=== PATIENT | female | born 1945 | race African-American/Black ===

== ENCOUNTER 2018-07-14 09:26 | Inpatient (IN) ==
[2018-07-14] MEDS ORDERED: Acetaminophen 325 MG Tablet PO PRN (11:36)
[2018-07-14] MEDS ORDERED: Sod Chloride 0.9% Inj 1,000 ML IV.CONT SCH (11:45)
[2018-07-14] MEDS ORDERED: MethylPREDNISolone Sod Succinate Inj 40 MG/ML Vial IV.PUSH ONE (13:27)
[2018-07-14 13:58] LABS: ABG Base Excess 5.1 mmol/L (-2-2); ABG PCO2 71 mmHg (38-42); ABG PO2 74 mmHg (61-120)
[2018-07-14] MEDS: Levofloxacin 500 mg Premix Inj 500 MG/100 ML PIGGYBACK IV.SIG SCH (14:03)
[2018-07-14] MEDS ORDERED: Dextrose 50% in Water 50 ML Vial IV.PUSH PRN (16:22)
--- NOTE | 2018-07-14 16:24 | P.HPIM ---
History of Present Illness Primary Care Physician: UNKNOWN Chief Complaint: Respiratory Distress History of Present Illness: Mrs. Hernandez is a 72-year-old female. She is a former smoker but official diagnoses of CHF or COPD are not present. She does have diabetes at baseline. She does take inhalers either for asthma or COPD. Today she came in complaining of acute shortness of breath. Hypoxia is present. New-onset seizure was also present which triggered her to come in. Acute kidney injury is present. Upon arrival she was on a nonrebreather which was upgraded to BiPAP based on ABG which showed respiratory acidosis. She is more comfortable on a nonrebreather. History is limited by nonrebreather use. She denies any chest pain. Inpatient Certification Inpatient Certification: I certify that the inpatient services were ordered in accordance with Medicare regulations governing the order. This includes certification that hospital inpatient services are reasonable and necessary and in the case of services not specified as inpatient-only under 42 CFR 419.22(n), that they are appropriately provided as inpatient services in accordance to with the 2-midnight benchmark under 43 CFR 412.3(e) Estimated Total Length of Stay (Days): 3 Plans for Post Hospital Care: Not yet determined Review of Systems Constitutional: No fevers, no chills no night sweats, no fatigue, no weakness Eyes: No eye pain, no blurry vision, no loss of vision ENT: No sore throat, no ear pain, no rhinorrhea Cardiovascular: No chest pain, no tachycardia, no palpitations, no syncope Respiratory: No wheezing, no cough, shortness of breath Gastrointestinal: No abdominal pain, no black tarry stools, no bright red blood per rectum, no vomiting, no diarrhea Musculoskeletal: No joint pain, no muscle cramps, no stiffness Integumentary: No rash, no ulcers, no drainage Neurologic: No sensory loss, no loss of motor function, no dizziness, seizure Psychiatric: No behavioral changes, no hallucinations, no suicidal ideations PMFSH Family History Family History Other Osteoarthritis Social History Social History Substance History: No History of Abuse Second Hand Smoke Exposure: No Smoking Status: Former smoker Tobacco Type: Cigarettes How Often Do You Have a Drink Containing Alcohol: Never Immunization History Hx Influenza Vaccine This Season: Yes Medications and Allergies Allergies Allergy/AdvReac Type Severity Reaction Status Date / Time No Known Allergies Allergy Verified 07/14/18 09:29 Home Medications Medication Instructions Recorded Confirmed Type Inhaler 2 puff INHALATION BID 07/14/18 History Nebulizer 1 amp INHALATION Q4HR NEB 07/14/18 History cholecalciferol (vitamin D3) 5,000 mg PO DAILY 07/14/18 07/14/18 History [Vitamin D3] furosemide [Lasix] BID 07/14/18 History glimepiride 07/14/18 07/14/18 History lisinopril mg PO DAILY 07/14/18 History Active Medications: Active Medications Acetaminophen (Tylenol) 650 mg PO Q4H PRN PRN Reason: Temp > 100.4 Al Hydroxide/Mg Hydroxide (Milk Of Randall Liq) 30 ml PO Q12H PRN PRN Reason: Mild Constipation Albuterol (Albuterol Neb (Prn)) 2.5 mg NEB Q4HR NEB PRN PRN Reason: Dyspnea or Wheeze Albuterol (Duoneb Neb (Dave)) 1 ampul NEB Q6HR WHILE AWAKE NEB ADVE Last Admin: 07/14/18 14:19 Dose: 1 ampul Levetiracetam 500 mg/ Sodium (Chloride) 105 mls @ 400 mls/hr IV.SIG Q12H DAVE Last Infusion: 07/14/18 14:19 Dose: Infused Levofloxacin/Dextrose (Levaquin 500 Mg Premix Inj) 500 mg in 100 mls @ 100 mls/ hr IV.SIG Q24H DAVE Last Infusion: 07/14/18 15:18 Dose: Infused Methylprednisolone Sodium Succinate (Solumedrol Inj) 40 mg IV.PUSH Q8HR DAVE Ondansetron HCl (Zofran Inj) 4 mg IV.PUSH Q6H PRN PRN Reason: NAUSEA OR VOMITING Sodium Chloride (Ns Flush) 2 ml IV.FLUSH BID DAVE Sodium Chloride (Ns Flush) 2 ml IV.FLUSH PRN PRN PRN Reason: FLUSH AFTER USING IV ACCESS Physical Exam Vital signs: Vital Signs 07/14/18 13:39 07/14/18 13:56 07/14/18 14:00 Temperature 97.5 F L Pulse Rate 72 76 Respiratory Rate 32 H 32 H Blood Pressure 159/75 H Pulse Oximetry 97 93 L 07/14/18 14:28 07/14/18 15:01 Temperature Pulse Rate 70 Respiratory Rate 25 H Blood Pressure 155/74 H Pulse Oximetry 95 92 L Intake & Output 07/13/18 07/14/18 07/14/18 18:59 06:59 18:59 Intake Total Balance Weight 122.4 kg Intake: IV Levaquin 500 mg Premix Inj 500 100 / 100 mg In 100 ml @ 100 mls/hr IV. SIG Q24H DAVE Rx#:[id number] Keppra Inj 500 MG In NS Inj 100 105 / 105 ML @ 400 mls/hr IV.SIG Q12H DAVE Rx#:[id number] Other: Weight On Admission 122.4 kg Narrative: GENERAL: NAD, A&Ox3, acute respiratory distress HEAD: Normocephalic. NECK: Supple, trachea midline. No lymphadenopathy. EYES: No scleral icterus. No injection or drainage. CARDIOVASCULAR: Regular rate and rhythm without murmurs, gallops, or rubs. RESPIRATORY: Breath sounds equal bilaterally. Increased work of breathing with accessory muscle use. Crackles at bases bilaterally. GASTROINTESTINAL: Abdomen soft, non-tender, nondistended. MUSCULOSKELETAL: No cyanosis, or edema. SKIN: Warm and dry. NEURO: No focal neurological deficits. Caprini VTE Risk Assessment Caprini VTE Risk Assessment: Moderate/High Risk (score >= 2) Caprini Risk Assessment Model: Point Value = 1 Point Value = 2 Point Value = 3 Point Value = 5 Age 41-60 Minor surgery BMI > 25 kg/m2 Swollen legs Varicose veins or History of unexplained or recurrent spontaneous Oral contraceptives or hormone replacement Sepsis (< 1 month) Serious lung disease, including pneumonia (< 1 month) Abnormal pulmonary function Acute myocardial infarction Congestive heart failure (< 1 month) History of inflammatory bowel disease Medical patient at bed rest Age 61-74 Arthroscopic surgery Major open surgery (> 45 min) Laparoscopic surgery (> 45 min) Malignancy Confined to bed (> 72 hours) Immobilizing plaster cast Central venous access Age >= 75 History of VTE Family history of VTE Factor V Leiden Prothrombin [id number] Lupus anticoagulant Anticardiolipin antibodies Elevated serum homocysteine Heparin-induced thrombocytopenia Other congenital or acquired thrombophilia Stroke (< 1 month) Elective arthroplasty Hip, pelvis, or leg fracture Acute spinal cord injury (< 1 month) Prophylaxis Regimen: Total Risk Factor Score Risk Level Prophylaxis Regimen 0-1 Low Early ambulation 2 Moderate Order ONE of the following: *Sequential Compression Device (SCD) *Heparin 5000 units SQ BID 3-4 Higher Order ONE of the following medications: *Heparin 5000 units SQ TID *Enoxaparin/Lovenox 40 mg SQ daily (WT < 150 kg, CrCl > 30 mL/min) *Enoxaparin/Lovenox 30 mg SQ daily (WT < 150 kg, CrCl > 10-29 mL/min) *Enoxaparin/Lovenox 30 mg SQ BID (WT < 150 kg, CrCl > 30 mL/min) AND/OR *Sequential Compression Device (SCD) 5 or more Highest Order ONE of the following medications: *Heparin 5000 units SQ TID (Preferred with Epidurals) *Enoxaparin/Lovenox 40 mg SQ daily (WT < 150 kg, CrCl > 30 mL/min) *Enoxaparin/Lovenox 30 mg SQ daily (WT < 150 kg, CrCl > 10-29 mL/min) *Enoxaparin/Lovenox 30 mg SQ BID (WT < 150 kg, CrCl > 30 mL/min) AND *Sequential Compression Device (SCD) Assessment and Plan Plan 73-year-old female admitted secondary to new onset seizure with CHF exacerbation versus COPD exacerbation versus both. Acute kidney injury present. Acute respiratory failure Hypoxia Possible COPD exacerbation Respiratory Acidosis Upgraded to Bipap on arrival Follow in ICU Repeat ABG after bipap trial Diuresis Continue oxygen supplements as needed Schedule duo nebs When necessary albuterol Levaquin Systemic steroids Follow for improvement in respiratory status Possible CHF with exacerbation Pulmonary edema Obtain echocardiogram Diuresis provided Follow cardiac enzymes Acute kidney injury Follow renal function Diuresis Avoid nephrotoxins Diabetes mellitus type 2 Follow blood sugars Insulin sliding scale Diabetic diet Hypertension Continue baseline treatment Follow blood pressures Adjust treatments as needed Chronic back pain Continue pain treatments Follow clinically DVT prophylaxis Heparin H&P: Quality VTE Deep Vein Thrombosis/Pulmonary Embolism Present on Admission: No
[2018-07-14 17:00] LABS: ABG Base Excess 6.1 mmol/L (-2-2); ABG PCO2 55 mmHg (38-42); ABG PO2 68 mmHg (61-120)
[2018-07-14] MEDS: Insulin NovoLOG Aspart Correctional Sugar Inj SQ SCH ×2 (17:33→20:58)
[2018-07-14] MEDS: Heparin - SQ 10,000 UNITS/ML Vial SQ SCH (20:54)
--- NOTE | 2018-07-14 21:17 | MG ---
cc: Richy Oleary MD EEG RECORD NUMBER: [facility] [place] 2-17 6-7 Hz activity, 20-40 microvolts, increased until myogenic artifact. Generalized slowing with transition into drowsy state, followed by stage II sleep with the appearance of spindle activity, followed by arousal and wakefulness. Reduced driving with photic stimulation. Single-lead EKG showing some irregularity and premature contractions. INTERPRETATION: Minimal encephalopathy in sleep state. Cardiac arrhythmia. Clinical correlation. MD FREYA Pagan/ruth , 08:41 PM , 08:46 PM
--- NOTE | 2018-07-14 21:26 | MB ---
cc: Barak Muñoz MD, PhD DATE: 07/14/2018 REASON FOR CONSULTATION: Possible seizure. HISTORY OF PRESENT ILLNESS: Ms. Hernandez is a very pleasant 72-year-old female who has COPD, congestive heart failure. She presented to the emergency room with hypoxia, complaints of shortness of breath, states she did not have her oxygen at home. She had an episode of loss of consciousness, with possible seizure activity. Apparently, that was when she was hypoxic. She has had no history of seizures in the past. No recurrent episodes of seizure activity, but apparently did lose consciousness. NEUROLOGICAL EXAMINATION: VITAL SIGNS: Blood pressure is 179/81, pulse is 71, respirations 26, temperature 99.6 degrees. HIGHER CORTICAL FUNCTION: She is alert and oriented x 3. Speech is normal. She answers questions appropriately, follows commands. Cranial nerves are intact. MOTOR: Motor exam is normal with 5/5 strength of all groups. There is no drift. within normal limits. Reflexes are symmetric. IMPRESSION: Episode of loss of consciousness, suspect related to hypoxemia. I doubt the patient has a true underlying seizure potential. Barak Muñoz MD, PhD KRISTI/ruth/ , 08:19 PM , 08:24 PM
[2018-07-14] MEDS: MethylPREDNISolone Sod Succinate Inj 40 MG/ML Vial IV.PUSH SCH (21:44)
[2018-07-15] MEDS ORDERED: Chlorhexidine Gluconate 2% 1 Pack (2 Cloths) TOPICAL PRN (04:00)
[2018-07-15] MEDS: Chlorhexidine Gluconate 2% 1 Pack (2 Cloths) TOPICAL SCH (04:00)
[2018-07-15 05:08] LABS: Baso # (Auto) 0.1 th/mm3 (0.0-0.2); Baso % (Auto) 1.8 % (0.0-2.0); Hemoglobin 8.9 gm/dL (11.6-15.3); Lymph # (Auto) 0.6 th/mm3 (1.0-4.8); Lymph % (Auto) 13.9 % (9.0-44.0); Mean Corpuscular Hemoglobin 29.1 pg (27.0-34.0); Mean Corpuscular Volume 91.1 fL (80.0-100.0); Mean Platelet Volume 7.2 fL (7.0-11.0); Mono # (Auto) 0.1 th/mm3 (0.0-0.9); Mono % (Auto) 1.7 % (0.0-8.0); Neut # (Auto) 3.2 th/mm3 (1.8-7.7); Neut % (Auto) 82.6 % (16.0-70.0); Platelet Count 255 th/mm3 (150-450); Red Blood Count 3.07 mil/mm3 (4.00-5.30)
[2018-07-15] MEDS: MethylPREDNISolone Sod Succinate Inj 40 MG/ML Vial IV.PUSH SCH ×3 (05:37→22:01)
[2018-07-15 05:39] LABS: Chloride 100 meq/L (98-107); Potassium 3.9 meq/L (3.5-5.1); Sodium 141 meq/L (136-145)
[2018-07-15 05:43] LABS: Calcium 8.5 mg/dL (8.5-10.1)
[2018-07-15 05:44] LABS: Albumin 2.3 g/dL (3.4-5.0); Anion Gap 9 meq/L (5-15); Blood Urea Nitrogen 41 mg/dL (7-18); Carbon Dioxide 32.3 meq/L (21.0-32.0); Glucose,Random 254 mg/dL (74-106)
[2018-07-15 05:47] LABS: Alanine Aminotransferase 19 U/L (10-53); Aspartate Aminotransferase 17 U/L (15-37); Glomerular Filtration Rate 28 mL/min (>89)
[2018-07-15 05:49] LABS: Total Protein 6.3 g/dL (6.4-8.2)
[2018-07-15 05:50] LABS: Alkaline Phosphatase 53 U/L (45-117)
[2018-07-15 05:52] LABS: Troponin I 0.02 ng/mL (0.02-0.05)
[2018-07-15] MEDS: Heparin - SQ 10,000 UNITS/ML Vial SQ SCH ×2 (08:58→21:02)
[2018-07-15] MEDS: Insulin NovoLOG Aspart Correctional Sugar Inj SQ SCH ×4 (10:00→21:02)
[2018-07-15] MEDS: Metoprolol Tartrate 25 MG Tablet PO SCH ×2 (11:30→21:03)
[2018-07-15] MEDS: amLODIPine 10 MG Tablet PO SCH (11:34)
--- NOTE | 2018-07-15 12:01 | P.PNIM ---
Subjective Interval history: Ms. Hernandez is improving through time. Ejection fraction is unknown but patient reports she has a history of CHF and her medications, now reported, correlate with this. Wheezing is still present intermittently. She is able to be weaned off BiPAP this morning. Physical Exam Vital signs: Vital Signs 07/14/18 13:39 07/14/18 13:56 07/14/18 14:00 Temperature 97.5 F L Pulse Rate 72 76 Respiratory Rate 32 H 32 H Blood Pressure 159/75 H Pulse Oximetry 97 93 L 07/14/18 14:28 07/14/18 15:01 07/14/18 16:57 Temperature Pulse Rate 70 Respiratory Rate 25 H Blood Pressure 155/74 H Pulse Oximetry 95 92 L 95 07/14/18 17:12 07/14/18 17:30 07/14/18 18:35 Temperature 97.4 F L Pulse Rate 74 75 Respiratory Rate 24 24 Blood Pressure 160/81 H Pulse Oximetry 94 L 94 L 07/14/18 19:00 07/14/18 19:44 07/14/18 20:00 Temperature 99.6 F Pulse Rate 77 71 Respiratory Rate 25 H 26 H Blood Pressure 179/81 H Pulse Oximetry 97 98 07/14/18 21:00 07/14/18 22:00 07/14/18 22:43 Temperature Pulse Rate 66 74 Respiratory Rate 21 29 H Blood Pressure 150/62 H 160/75 H Pulse Oximetry 98 100 99 07/14/18 23:12 07/15/18 00:00 07/15/18 00:50 Temperature 97.7 F Pulse Rate 66 62 Respiratory Rate 16 12 Blood Pressure 148/60 H 154/58 H Pulse Oximetry 97 98 98 07/15/18 01:00 07/15/18 02:00 07/15/18 03:00 Temperature Pulse Rate 62 64 96 H Respiratory Rate 14 19 26 H Blood Pressure 154/68 H 160/68 H 160/70 H Pulse Oximetry 98 98 07/15/18 04:00 07/15/18 04:05 07/15/18 05:00 Temperature 96.6 F L Pulse Rate 60 73 Respiratory Rate 24 Blood Pressure 169/70 H 153/70 H Pulse Oximetry 97 96 91 L 07/15/18 06:00 07/15/18 06:10 07/15/18 07:00 Temperature Pulse Rate 62 74 Respiratory Rate 32 H 22 Blood Pressure 162/74 H 176/79 H Pulse Oximetry 98 98 07/15/18 08:00 07/15/18 08:30 07/15/18 09:00 Temperature Pulse Rate 71 69 74 Respiratory Rate 25 H 24 22 Blood Pressure 172/68 H 166/84 H Pulse Oximetry 95 96 93 L 07/15/18 10:00 07/15/18 11:00 Temperature Pulse Rate 76 78 Respiratory Rate 25 H 30 H Blood Pressure 184/74 H 179/87 H Pulse Oximetry 92 L 94 L Intake & Output 07/14/18 07/15/18 07/15/18 18:59 06:59 18:59 Intake Total 205 / 205 425 / 425 Output Total 1200 / 1200 600 / 600 Balance -995 / -995 -175 / -175 Weight 122.4 kg 113.6 kg Intake: IV 205 / 205 105 / 105 Levaquin 500 mg Premix Inj 500 100 / 100 mg In 100 ml @ 100 mls/hr IV. SIG Q24H DEBI Rx#:[id number] Keppra Inj 500 MG In NS Inj 100 105 / 105 105 / 105 ML @ 400 mls/hr IV.SIG Q12H DEBI Rx#:[id number] Oral 320 / 320 Output: Urine Amount (Catheter) 1200 / 1200 600 / 600 Indwelling Urethral Catheter 1200 / 1200 600 / 600 Other: Date of Last Bowel Movement 07/14/18 # Bowel Movements 0 Weight On Admission 122.4 kg Narrative: GENERAL: NAD, A&Ox3, resolution of respiratory distress HEAD: Normocephalic. NECK: Supple, trachea midline. No lymphadenopathy. EYES: No scleral icterus. No injection or drainage. CARDIOVASCULAR: Regular rate and rhythm without murmurs, gallops, or rubs. RESPIRATORY: Breath sounds equal bilaterally. No accessory muscle use. Crackles at bases. GASTROINTESTINAL: Abdomen soft, non-tender, nondistended. MUSCULOSKELETAL: No cyanosis, or edema. SKIN: Warm and dry. NEURO: No focal neurological deficits. Urinary Catheter Management Indwelling Urethral Catheter: Cath placed during this visit: no Results Labs CBC & Chem 7: 07/15/18 04:37 07/15/18 04:37 Assessment and Plan Plan 73-year-old female admitted secondary to new onset seizure with CHF exacerbation versus COPD exacerbation versus both. Acute kidney injury present. Patient weaned from BiPAP this morning. Currently tolerating nasal cannula treatment. She is on oxygen at baseline. Further diuresis and further treatment of COPD exacerbation needed prior to discharge. Physical therapy and occupational therapy will be initiated at this point. Patient's medically stable for transfer out of ICU. Acute respiratory failure Hypoxia Possible COPD exacerbation Respiratory Acidosis Discontinuation of BiPAP on 05/14/2019 Transfer out of ICU on 05/14/2019 Continue diuresis Continue oxygen supplements as needed Schedule duo nebs When necessary albuterol Levaquin Systemic steroids Follow for improvement in respiratory status Systolic CHF with exacerbation Pulmonary edema Obtain echocardiogram Diuresis continued Follow cardiac enzymes Urinary tract infection Continue Levaquin Probiotics Follow urine cultures Acute kidney injury Follow renal function Diuresis Avoid nephrotoxins Diabetes mellitus type 2 Follow blood sugars Insulin sliding scale Diabetic diet Hypertension Continue baseline treatment Follow blood pressures Adjust treatments as needed Chronic back pain Continue pain treatments Follow clinically DVT prophylaxis Heparin Progress Note: Quality VTE Deep Vein Thrombosis/Pulmonary Embolism Present on Admission: No
[2018-07-15] MEDS: Levofloxacin 500 mg Premix Inj 500 MG/100 ML PIGGYBACK IV.SIG SCH (14:15)
--- NOTE | 2018-07-15 15:00 | ECHRPT ---
Indication: SHORTNESS OF BREATH CONCLUSIONS Normal left ventricular size. Wall thickness is normal. The left ventricular systolic function is low normal with an estimated ejection fraction in the rang e of 50- 55%. The left atrial size is mildly dilated. Trace mitral valve regurgitation. Aortic valve sclerosis is present. There is trace tricuspid valve regurgitation. The estimated pulmonary arterial pressure is 57 mmHg. BP: / HR: Rhythm: MEASUREMENTS (Male / Female) Normal Values Technical Quality: 2D ECHO LV Diastolic Diameter PLAX 4.3 cm 4.2 - 5.9 / 3.9 - 5.3 cm LV Systolic Diameter PLAX 3.4 cm IVS Diastolic Thickness 1.1 cm 0.6 - 1.0 / 0.6 - 0.9 cm LVPW Diastolic Thickness 1.0 cm 0.6 - 1.0 / 0.6 - 0.9 cm LV Relative Wall Thickness 0.5 RV Internal Dim ED PLAX 3.9 cm LVOT Diameter 1.7 cm Aortic Root Diameter 3.1 cm LA Systolic Diameter LX 3.6 cm 3.0 - 4.0 / 2.7 - 3.8 cm M-MODE AV Cusp Separation MM 1.8 cm DOPPLER AV Peak Velocity 173.0 cm/s AV Peak Gradient 12.0 mmHg AV Mean Gradient 6.0 mmHg AV Velocity Time Integral 39.8 cm LVOT Peak Velocity 132.0 cm/s LVOT Peak Gradient 7.0 mmHg LVOT Velocity Time Integral 31.6 cm AV Area Cont Eq vti 1.8 cm AV Area Cont Eq pk 1.7 cm Mitral E Point Velocity 155.0 cm/s Mitral A Point Velocity 110.0 cm/s Mitral E to A Ratio 1.4 LV E' Lateral Velocity 8.6 cm/s Mitral E to LV E' Lateral Ratio 18.1 TR Peak Velocity 342.0 cm/s TR Peak Gradient 46.8 mmHg Right Atrial Pressure 10.0 mmHg Pulmonary Artery Systolic Pressu 56.8 mmHg Right Ventricular Systolic Press 56.8 mmHg PV Peak Velocity 136.0 cm/s PV Peak Gradient 7.4 mmHg FINDINGS LEFT VENTRICLE Normal left ventricular size. Wall thickness is normal. The left ventricular systolic function is low normal with an estimated ejection fraction in the rang e of 50- 55%. RIGHT VENTRICLE The right ventricle was not well visualized. LEFT ATRIUM The left atrial size is mildly dilated. RIGHT ATRIUM The right atrium is not well visualized. ATRIAL SEPTUM Normal atrial septal thickness without atrial level shunting by limited color doppler interrogation. AORTA The aortic root and proximal ascending aorta are normal in size on limited imaging. MITRAL VALVE Trace mitral valve regurgitation. AORTIC VALVE Aortic valve sclerosis is present. TRICUSPID VALVE There is trace tricuspid valve regurgitation. The estimated pulmonary arterial pressure is 57 mmHg. PULMONARY VALVE No pulmonary valve regurgitation or stenosis. VESSELS The inferior vena cava is normal in size. PERICARDIUM No pericardial effusion. Trenton Sheikh MD, FACC (Electronically Signed) Final Date:15 July 2018 14:59
[2018-07-15] MEDS: Insulin Detemir Inj 1,000 UNIT/10 ML Vial SQ SCH (21:02)
[2018-07-16] MEDS: Chlorhexidine Gluconate 2% 1 Pack (2 Cloths) TOPICAL SCH (03:43)
[2018-07-16 04:39] LABS: Chloride 99 meq/L (98-107); Potassium 4.2 meq/L (3.5-5.1); Sodium 138 meq/L (136-145)
[2018-07-16 04:42] LABS: Albumin 2.4 g/dL (3.4-5.0); Anion Gap 4 meq/L (5-15); Blood Urea Nitrogen 48 mg/dL (7-18); Calcium 8.6 mg/dL (8.5-10.1); Carbon Dioxide 35.4 meq/L (21.0-32.0); Glucose,Random 259 mg/dL (74-106)
[2018-07-16 04:45] LABS: Alanine Aminotransferase 18 U/L (10-53); Aspartate Aminotransferase 15 U/L (15-37); Glomerular Filtration Rate 29 mL/min (>89)
[2018-07-16 04:47] LABS: Total Protein 6.5 g/dL (6.4-8.2)
[2018-07-16 04:48] LABS: Alkaline Phosphatase 53 U/L (45-117)
[2018-07-16] MEDS: Liothyronine 5 MCG Tablet PO SCH (05:18)
[2018-07-16] MEDS: MethylPREDNISolone Sod Succinate Inj 40 MG/ML Vial IV.PUSH SCH ×3 (05:19→21:02)
[2018-07-16 05:45] LABS: Baso % (Auto) 0.3 % (0.0-2.0); Eos % (Auto) 0.1 % (0.0-4.0); Hematocrit 28.5 % (35.0-46.0); Hemoglobin 9.3 gm/dL (11.6-15.3); Lymph # (Auto) 0.8 th/mm3 (1.0-4.8); Lymph % (Auto) 10.6 % (9.0-44.0); Mean Corpuscular HGB Conc 32.7 % (32.0-36.0); Mean Corpuscular Hemoglobin 29.9 pg (27.0-34.0); Mean Corpuscular Volume 91.5 fL (80.0-100.0); Mean Platelet Volume 7.7 fL (7.0-11.0); Mono # (Auto) 0.1 th/mm3 (0.0-0.9); Mono % (Auto) 1.4 % (0.0-8.0); Neut # (Auto) 6.5 th/mm3 (1.8-7.7); Neut % (Auto) 87.6 % (16.0-70.0); Platelet Count 268 th/mm3 (150-450); Red Blood Count 3.12 mil/mm3 (4.00-5.30); White Blood Count 7.4 th/mm3 (4.0-11.0)
[2018-07-16] MEDS: Insulin NovoLOG Aspart Correctional Sugar Inj SQ SCH ×4 (08:32→21:04)
[2018-07-16] MEDS: Heparin - SQ 10,000 UNITS/ML Vial SQ SCH ×2 (08:32→21:03)
[2018-07-16] MEDS: amLODIPine 10 MG Tablet PO SCH (08:33)
[2018-07-16] MEDS: Metoprolol Tartrate 25 MG Tablet PO SCH ×2 (08:33→22:53)
[2018-07-16] MEDS ORDERED: Metoprolol Tartrate 25 MG Tablet PO SCH (08:37)
[2018-07-16] MEDS ORDERED: Metoprolol Tartrate 25 MG Tablet PO ONE (09:15)
[2018-07-16] MEDS ORDERED: Acetaminophen 325 MG Tablet PO PRN (10:18)
--- NOTE | 2018-07-16 10:20 | P.PNIM ---
Subjective Interval history: Patient is showing improved stability overnight. Today she complains of headache, sore throat, and cough. A viral upper respiratory tract infection could be present, and this would have likely contributed to the patient's COPD exacerbation. Fluid overload is improving with diuresis. Her underlying chronic kidney disease will be contributory. Physical Exam Vital signs: Vital Signs 07/15/18 11:00 07/15/18 12:00 07/15/18 13:07 Temperature 97.9 F Pulse Rate 78 70 64 Respiratory Rate 30 H 25 H 31 H Blood Pressure 179/87 H 171/79 H 165/68 H Pulse Oximetry 94 L 97 96 07/15/18 13:32 07/15/18 14:00 07/15/18 15:00 Temperature Pulse Rate 72 82 64 Respiratory Rate 22 25 H 19 Blood Pressure 153/78 H 146/66 H Pulse Oximetry 96 07/15/18 16:00 07/15/18 17:00 07/15/18 18:14 Temperature Pulse Rate 64 70 Respiratory Rate 24 29 H Blood Pressure 137/61 158/68 H 155/63 H Pulse Oximetry 94 L 87 L 89 L 07/15/18 20:00 07/15/18 20:24 07/16/18 00:00 Temperature 98.8 F 98.2 F Pulse Rate 73 64 69 Respiratory Rate 24 24 17 Blood Pressure 175/81 H 139/69 Pulse Oximetry 98 95 97 07/16/18 04:00 07/16/18 04:47 07/16/18 05:16 Temperature 98.1 F 96.7 F L Pulse Rate 61 62 Respiratory Rate 16 18 Blood Pressure 168/87 H 173/89 H Pulse Oximetry 97 95 07/16/18 07:28 07/16/18 08:00 Temperature 98.7 F Pulse Rate 72 77 Respiratory Rate 18 21 Blood Pressure 164/75 H Pulse Oximetry 95 95 Intake & Output 07/15/18 07/16/18 07/16/18 18:59 06:59 18:59 Intake Total 205 / 205 305 / 305 480 / 480 Output Total 1200 / 1200 350 / 350 300 / 300 Balance -995 / -995 -45 / -45 180 / 180 Weight 119.4 kg Intake: IV / 105 / 105 Levaquin 500 mg Premix Inj 500 100 / 100 mg In 100 ml @ 100 mls/hr IV. SIG Q24H DEBI Rx#:[id number] Keppra Inj 500 MG In NS Inj 100 105 / 105 105 / 105 ML @ 400 mls/hr IV.SIG Q12H DEBI Rx#:[id number] Oral 480 / 480 Oral Supplement 200 / 200 Output: Urine 600 / 600 350 / 350 300 / 300 Stool 0 / 0 Urine Amount (Catheter) 600 / 600 Indwelling Urethral Catheter 600 / 600 Other: Date of Last Bowel Movement 07/14/18 07/16/18 # Bowel Movements 1 Narrative: GENERAL: NAD, A&Ox3, resolution of respiratory distress HEAD: Normocephalic. NECK: Supple, trachea midline. No lymphadenopathy. EYES: No scleral icterus. No injection or drainage. CARDIOVASCULAR: Regular rate and rhythm without murmurs, gallops, or rubs. RESPIRATORY: Breath sounds equal bilaterally. No accessory muscle use. Crackles at bases. GASTROINTESTINAL: Abdomen soft, non-tender, nondistended. MUSCULOSKELETAL: No cyanosis, or edema. SKIN: Warm and dry. NEURO: No focal neurological deficits. Urinary Catheter Management Indwelling Urethral Catheter: Cath placed during this visit: yes, but has since been removed by the nurse Reason for continuing: Decision to DC catheter Insertion date: 07/14/18 Removal date: 07/15/18 Removal time: 12:52 Results Labs CBC & Chem 7: 07/16/18 04:25 07/16/18 04:25 Assessment and Plan Plan 73-year-old female admitted secondary to new onset seizure with CHF exacerbation versus COPD exacerbation versus both. Acute kidney injury present. Stable off of BiPAP. Continue oxygen supplementation. Continue PT. Continue OT. Continue monitoring renal function. Continue diuresis. Acute respiratory failure Hypoxia Possible COPD exacerbation Respiratory Acidosis Discontinuation of BiPAP on 05/14/2019 Transfer out of ICU on 05/14/2019 Continue diuresis Continue oxygen supplements as needed Schedule duo nebs When necessary albuterol Levaquin Systemic steroids Follow for improvement in respiratory status Systolic CHF with exacerbation Pulmonary edema Obtain echocardiogram Diuresis continued Follow cardiac enzymes Urinary tract infection Continue Levaquin Probiotics Follow urine cultures Acute kidney injury Follow renal function Diuresis Avoid nephrotoxins Diabetes mellitus type 2 Follow blood sugars Insulin sliding scale Diabetic diet Hypertension Continue baseline treatment Follow blood pressures Adjust treatments as needed Chronic back pain Continue pain treatments Follow clinically DVT prophylaxis Heparin Progress Note: Quality VTE Deep Vein Thrombosis/Pulmonary Embolism Present on Admission: No
[2018-07-16] MEDS ORDERED: Benzocaine/Menthol 15 MG/3.6 MG SF Lozenge BUCCAL PRN (12:00)
[2018-07-16] MEDS: Levofloxacin 500 mg Premix Inj 500 MG/100 ML PIGGYBACK IV.SIG SCH (13:27)
[2018-07-16] MEDS: Insulin Detemir Inj 1,000 UNIT/10 ML Vial SQ SCH (21:03)
[2018-07-17] MEDS: Chlorhexidine Gluconate 2% 1 Pack (2 Cloths) TOPICAL SCH (05:38)
[2018-07-17] MEDS: MethylPREDNISolone Sod Succinate Inj 40 MG/ML Vial IV.PUSH SCH ×3 (05:39→21:00)
[2018-07-17] MEDS: Liothyronine 5 MCG Tablet PO SCH (05:39)
[2018-07-17 06:40] LABS: Baso % (Auto) 0.2 % (0.0-2.0); Chloride 100 meq/L (98-107); Hemoglobin 9.2 gm/dL (11.6-15.3); Lymph # (Auto) 0.6 th/mm3 (1.0-4.8); Lymph % (Auto) 9.8 % (9.0-44.0); Mean Corpuscular HGB Conc 32.7 % (32.0-36.0); Mean Corpuscular Hemoglobin 29.9 pg (27.0-34.0); Mean Corpuscular Volume 91.4 fL (80.0-100.0); Mean Platelet Volume 7.9 fL (7.0-11.0); Mono # (Auto) 0.1 th/mm3 (0.0-0.9); Mono % (Auto) 1.6 % (0.0-8.0); Neut # (Auto) 5.8 th/mm3 (1.8-7.7); Neut % (Auto) 88.4 % (16.0-70.0); Platelet Count 279 th/mm3 (150-450); Potassium 4.2 meq/L (3.5-5.1); Red Blood Count 3.06 mil/mm3 (4.00-5.30); Sodium 139 meq/L (136-145); White Blood Count 6.5 th/mm3 (4.0-11.0)
[2018-07-17 06:46] LABS: Calcium 8.3 mg/dL (8.5-10.1)
[2018-07-17 06:47] LABS: Albumin 2.3 g/dL (3.4-5.0); Anion Gap 6 meq/L (5-15); Blood Urea Nitrogen 57 mg/dL (7-18); Carbon Dioxide 32.8 meq/L (21.0-32.0); Glucose,Random 262 mg/dL (74-106)
[2018-07-17 06:50] LABS: Alanine Aminotransferase 17 U/L (10-53); Aspartate Aminotransferase 12 U/L (15-37); Glomerular Filtration Rate 28 mL/min (>89)
[2018-07-17 06:51] LABS: Total Protein 6.1 g/dL (6.4-8.2)
[2018-07-17 06:52] LABS: Alkaline Phosphatase 48 U/L (45-117)
[2018-07-17 07:04] LABS: INR 1.1 Ratio; Prothrombin Time 11.4 sec (9.8-11.6)
[2018-07-17] MEDS: amLODIPine 10 MG Tablet PO SCH (08:26)
[2018-07-17] MEDS: Heparin - SQ 10,000 UNITS/ML Vial SQ SCH ×2 (08:26→20:56)
[2018-07-17] MEDS: Insulin NovoLOG Aspart Correctional Sugar Inj SQ SCH ×4 (08:27→20:54)
[2018-07-17] MEDS: Metoprolol Tartrate 25 MG Tablet PO SCH ×2 (08:28→20:55)
--- NOTE | 2018-07-17 11:36 | P.PNIM ---
Subjective Interval history: With physical therapy patient has demonstrated ambulatory ability and capacity. Respiratory status is not back to baseline. Exertional tolerance is poor due to respiratory status. Physical Exam Vital signs: Vital Signs 07/16/18 12:00 07/16/18 14:59 07/16/18 16:00 Temperature 97.2 F L 97.8 F Pulse Rate 70 58 L 65 Respiratory Rate 20 16 20 Blood Pressure 173/73 H 145/66 H Pulse Oximetry 96 95 07/16/18 19:45 07/16/18 20:00 07/16/18 21:56 Temperature 97.3 F L Pulse Rate 58 L 53 L 52 L Respiratory Rate 18 16 Blood Pressure 146/66 H Pulse Oximetry 98 98 07/17/18 00:00 07/17/18 04:00 07/17/18 07:36 Temperature 98.0 F Pulse Rate 64 54 L 60 Respiratory Rate 16 18 16 Blood Pressure 139/63 161/89 H Pulse Oximetry 96 99 98 Intake & Output 07/16/18 07/17/18 07/17/18 18:59 06:59 18:59 Intake Total 1465 / 1465 105 / 105 Output Total 1500 / 1500 Balance -35 / -35 105 / 105 Weight 122.7 kg Intake: IV 205 / 205 105 / 105 Levaquin 500 mg Premix Inj 500 100 / 100 mg In 100 ml @ 100 mls/hr IV. SIG Q24H [facility] Rx#:[id number] Keppra Inj 500 MG In NS Inj 100 105 / 105 105 / 105 ML @ 400 mls/hr IV.SIG Q12H [facility] Rx#:[id number] Oral 1260 / 1260 Output: Urine 1500 / 1500 Other: Post Void Residual 1,000 Narrative: GENERAL: NAD, A&Ox3, resolution of respiratory distress HEAD: Normocephalic. NECK: Supple, trachea midline. No lymphadenopathy. EYES: No scleral icterus. No injection or drainage. CARDIOVASCULAR: Regular rate and rhythm without murmurs, gallops, or rubs. RESPIRATORY: Breath sounds equal bilaterally. No accessory muscle use. Crackles at bases. GASTROINTESTINAL: Abdomen soft, non-tender, nondistended. MUSCULOSKELETAL: No cyanosis, or edema. SKIN: Warm and dry. NEURO: No focal neurological deficits. Urinary Catheter Management Indwelling Urethral Catheter: Cath placed during this visit: yes, but has since been removed by the nurse Reason for continuing: Decision to DC catheter Insertion date: 07/14/18 Removal date: 07/15/18 Removal time: 12:52 Results Labs CBC & Chem 7: 07/17/18 05:33 07/17/18 05:33 Assessment and Plan Plan 73-year-old female admitted secondary to new onset seizure with CHF exacerbation versus COPD exacerbation versus both. Acute kidney injury present. Not yet stable for discharge. Respiratory status still not efficient enough to tolerate normal exertion. Continue oxygen supplementation. Continue PT. Continue OT. Continue monitoring renal function. Continue diuresis. Acute respiratory failure Hypoxia Possible COPD exacerbation Respiratory Acidosis Discontinuation of BiPAP on 05/14/2019 Transfer out of ICU on 05/14/2019 Continue diuresis Continue oxygen supplements as needed Schedule duo nebs When necessary albuterol Levaquin Systemic steroids Follow for improvement in respiratory status Systolic CHF with exacerbation Pulmonary edema Obtain echocardiogram Diuresis continued Follow cardiac enzymes Urinary tract infection Continue Levaquin Probiotics Follow urine cultures Acute kidney injury Follow renal function Diuresis Avoid nephrotoxins Diabetes mellitus type 2 Follow blood sugars Insulin sliding scale Diabetic diet Hypertension Continue baseline treatment Follow blood pressures Adjust treatments as needed Chronic back pain Continue pain treatments Follow clinically DVT prophylaxis Heparin Progress Note: Quality VTE Deep Vein Thrombosis/Pulmonary Embolism Present on Admission: No
--- NOTE | 2018-07-17 13:10 | P.PNNEU ---
Subjective Subjective Comments: No headache vision loss or any focal weakness. Breathing improved Active Medications: Active Medications Acetaminophen (Tylenol) 650 mg PO Q4H PRN PRN Reason: Fever or Headache Last Admin: 07/16/18 10:51 Dose: 650 mg Al Hydroxide/Mg Hydroxide (Milk Of Magnesia Liq) 30 ml PO Q12H PRN PRN Reason: Mild Constipation Albuterol (Albuterol Neb (Prn)) 2.5 mg NEB Q4HR NEB PRN PRN Reason: Dyspnea or Wheeze Last Admin: 07/14/18 17:29 Dose: 2.5 mg Albuterol (Duoneb Neb (Dave)) 1 ampul NEB Q6HR WHILE AWAKE NEB [facility] Last Admin: 07/17/18 07:25 Dose: 1 ampul Amlodipine Besylate (Norvasc) 10 mg PO DAILY [facility] Last Admin: 07/17/18 08:26 Dose: 10 mg Atorvastatin Calcium (Lipitor) 80 mg PO DAILY [facility] Last Admin: 07/17/18 08:26 Dose: 80 mg Benzocaine/Menthol (Cepacol Max Strength) 1 lozenge BUCCAL Q2H PRN PRN Reason: SORE THROAT Budesonide (Pulmocort Respule Neb) 0.5 mg NEB DAILY NEB [facility] Last Admin: 07/17/18 07:25 Dose: 0.5 mg Chlorhexidine Gluconate (Chlorhexidine 2% Cloth) 3 pack TOPICAL DAILY@0400 [facility]AVE Stop: 07/20/18 03:59 Last Admin: 07/17/18 05:38 Dose: Not Given Chlorhexidine Gluconate (Chlorhexidine 2% Cloth) 3 pack TOPICAL DAILY@0400 PRN PRN Reason: Extra cloth needed Stop: 07/20/18 03:59 Clonidine HCl (Catapres) 0.1 mg PO Q6H PRN PRN Reason: SYS BP GREATER THAN 160 MMHG Last Admin: 07/16/18 15:02 Dose: 0.1 mg Dextrose (D50w Vial) 50 ml IV.PUSH UNSCH PRN PRN Reason: PER HYPOGLYCEMIA PROTOCOL Furosemide (Lasix Inj) 40 mg IV.PUSH BID@0800,1600 [facility] Last Admin: 07/17/18 08:27 Dose: 40 mg Glucagon (Glucagon Inj) 1 mg OTHER PRN PRN PRN Reason: for Hypoglycemia Protocol Guaifenesin (Robitussin Liq) 200 mg PO Q6HR PRN PRN Reason: Cough Last Admin: 07/17/18 00:27 Dose: 200 mg Heparin Sodium (Porcine) (Heparin Inj) 5,000 units SQ Q12HR [facility] Last Admin: 07/17/18 08:26 Dose: 5,000 units Levetiracetam 500 mg/ Sodium (Chloride) 105 mls @ 400 mls/hr IV.SIG Q12H [facility] Last Infusion: 07/17/18 12:22 Dose: Infused Levofloxacin/Dextrose (Levaquin 500 Mg Premix Inj) 500 mg in 100 mls @ 100 mls/ hr IV.SIG Q24H [facility] Last Infusion: 07/16/18 14:37 Dose: Infused Insulin Aspart (Novolog Insulin Correctional Sugar Inj) 0 unit SQ ACHS [facility]; Protocol Last Admin: 07/17/18 12:05 Dose: 10 unit Insulin Detemir (Levemir Inj) 12 unit SQ HS [facility] Last Admin: 07/16/18 21:03 Dose: 12 unit Liothyronine Sodium (Cytomel) 5 mcg PO DAILY@0600 [facility] Last Admin: 07/17/18 05:39 Dose: 5 mcg Methylprednisolone Sodium Succinate (Solumedrol Inj) 40 mg IV.PUSH Q8HR [facility] Last Admin: 07/17/18 05:39 Dose: 40 mg Metoprolol Tartrate (Lopressor) 50 mg PO BID [facility] Last Admin: 07/17/18 08:28 Dose: Not Given Ondansetron HCl (Zofran Inj) 4 mg IV.PUSH Q6H PRN PRN Reason: NAUSEA OR VOMITING Pantoprazole Sodium (Protonix) 40 mg PO DAILY [facility] Last Admin: 07/17/18 08:26 Dose: 40 mg Sodium Chloride (Ns Flush) 2 ml IV.FLUSH BID [facility] Last Admin: 07/17/18 08:28 Dose: 2 ml Sodium Chloride (Ns Flush) 2 ml IV.FLUSH PRN PRN PRN Reason: FLUSH AFTER USING IV ACCESS Vitamin D (Vitamin D3) 5,000 unit PO DAILY [facility] Last Admin: 07/17/18 08:26 Dose: 5,000 unit Warfarin Sodium (Coumadin) 5 mg PO DAILY@1600 [facility] Allergies/Adverse Reactions: Allergies Allergy/AdvReac Type Severity Reaction Status Date / Time No Known Allergies Allergy Verified 07/14/18 09:29 Review of Systems All other systems reviewed negative except as stated in HPI Physical Exam Vital signs: Vital Signs 07/16/18 14:59 07/16/18 16:00 07/16/18 19:45 Temperature 97.8 F Pulse Rate 58 L 65 58 L Respiratory Rate 16 20 18 Blood Pressure 145/66 H Pulse Oximetry 95 98 07/16/18 20:00 07/16/18 21:56 07/17/18 00:00 Temperature 97.3 F L 98.0 F Pulse Rate 53 L 52 L 64 Respiratory Rate 16 16 Blood Pressure 146/66 H 139/63 Pulse Oximetry 98 96 07/17/18 04:00 07/17/18 07:36 07/17/18 08:00 Temperature Pulse Rate 54 L 60 60 Respiratory Rate 18 16 22 Blood Pressure 161/89 H 175/86 H Pulse Oximetry 99 98 98 07/17/18 12:00 Temperature 96.7 F L Pulse Rate 61 Respiratory Rate 20 Blood Pressure 162/72 H Pulse Oximetry 98 Intake & Output 07/16/18 07/17/18 07/17/18 18:59 06:59 18:59 Intake Total 1465 / 1465 105 / 105 405 / 405 Output Total 1500 / 1500 575 / 575 Balance -35 / -35 105 / 105 -170 / -170 Weight 122.7 kg Intake: IV 205 / 205 105 / 105 105 / 105 Levaquin 500 mg Premix Inj 500 100 / 100 mg In 100 ml @ 100 mls/hr IV. SIG Q24H [facility] Rx#:[id number] Keppra Inj 500 MG In NS Inj 100 105 / 105 105 / 105 105 / 105 ML @ 400 mls/hr IV.SIG Q12H [facility] Rx#:[id number] Oral 1260 / 1260 300 / 300 Output: Urine 1500 / 1500 575 / 575 Other: Post Void Residual 1,000 # Voids 1 Narrative: GENERAL: in NAD, mildly obese female sitting comfortably in her chair SKIN: Warm and dry. HEAD: Atraumatic. Normocephalic. EYES: Pupils equal and round. No scleral icterus. ENT: No nasal bleeding or discharge. Mucous membranes pink and moist. NECK: Trachea midline. No JVD. CARDIOVASCULAR: Regular rate and rhythm. RESPIRATORY: Nasal cannula in place GASTROINTESTINAL: Abdomen soft, non-tender, nondistended. MUSCULOSKELETAL: Extremities without clubbing, cyanosis, or edema. NEUROLOGICAL: Awake and alert. No aphasia, oriented x3 fluent articulate, No facial asymmetry, OU 3-2mm, eomi, VFF, No drift, Motor grossly within normal limits. No hemisensory neglect, gait not assessed secondary fall risk PSYCHIATRIC: Appropriate mood and affect; insight and judgment normal. - Constitutional no acute distress - Routine HEENT Exam Head: Present: normocephalic Eye: Present: EOMI - Urinary Catheter Management Indwelling Urethral Catheter Cath placed during this visit: yes, but has since been removed by the nurse Reason for continuing: Decision to DC catheter Insertion date: 07/14/18 Removal date: 07/15/18 Removal time: 12:52 Objective Laboratory Results - last 24 hr 07/16/18 07/16/18 07/17/18 17:10 19:56 05:33 CBC w Diff Auto diff final WBC 6.5 RBC 3.06 L Hgb 9.2 L Hct 28.0 L MCV 91.4 MCH 29.9 MCHC 32.7 RDW 16.0 Plt Count 279 MPV 7.9 Neut % (Auto) 88.4 H Lymph % (Auto) 9.8 [place] % (Auto) 1.6 Eos % (Auto) 0.0 Baso % (Auto) 0.2 Neut # (Auto) 5.8 Lymph # (Auto) 0.6 L [place] # (Auto) 0.1 Eos # (Auto) 0.0 Baso # (Auto) 0.0 WBC Differential . Differential Comment . PT INR Sodium Potassium Chloride Carbon Dioxide Anion Gap BUN Creatinine Estimated GFR POC Glucose 245 362 Random Glucose Calcium Total Bilirubin AST ALT Alkaline Phosphatase Total Protein Albumin 07/17/18 07/17/18 07/17/18 05:33 05:33 07:52 CBC w Diff WBC RBC Hgb Hct MCV MCH MCHC RDW Plt Count MPV Neut % (Auto) Lymph % (Auto) [place] % (Auto) Eos % (Auto) Baso % (Auto) Neut # (Auto) Lymph # (Auto) [place] # (Auto) Eos # (Auto) Baso # (Auto) WBC Differential Differential Comment PT 11.4 INR 1.1 Sodium 139 Potassium 4.2 Chloride 100 Carbon Dioxide 32.8 H Anion Gap 6 BUN 57 H Creatinine 2.10 H Estimated GFR 28 L POC Glucose 270 Random Glucose 262 H Calcium 8.3 L Total Bilirubin 0.2 AST 12 L ALT 17 Alkaline Phosphatase 48 Total Protein 6.1 L Albumin 2.3 L 07/17/18 11:22 CBC w Diff WBC RBC Hgb Hct MCV MCH MCHC RDW Plt Count MPV Neut % (Auto) Lymph % (Auto) [place] % (Auto) Eos % (Auto) Baso % (Auto) Neut # (Auto) Lymph # (Auto) [place] # (Auto) Eos # (Auto) Baso # (Auto) WBC Differential Differential Comment PT INR Sodium Potassium Chloride Carbon Dioxide Anion Gap BUN Creatinine Estimated GFR POC Glucose 311 Random Glucose Calcium Total Bilirubin AST ALT Alkaline Phosphatase Total Protein Albumin Review/Management - Review/Management Plan: Systolic heart failure Diabetes Hypertension Kidney disease Metabolic/hypoxic/hypercapnic encephalopathy Resolved Doing well
[2018-07-17] MEDS: Levofloxacin 500 mg Premix Inj 500 MG/100 ML PIGGYBACK IV.SIG SCH (15:05)
[2018-07-17] MEDS: Insulin Detemir Inj 1,000 UNIT/10 ML Vial SQ SCH (20:53)
[2018-07-18 04:10] VITALS: BP 138/62; TEMP 97.9
[2018-07-18] MEDS: Chlorhexidine Gluconate 2% 1 Pack (2 Cloths) TOPICAL SCH (05:33)
[2018-07-18] MEDS: Liothyronine 5 MCG Tablet PO SCH (06:09)
[2018-07-18] MEDS: MethylPREDNISolone Sod Succinate Inj 40 MG/ML Vial IV.PUSH SCH (06:09)
[2018-07-18 07:18] VITALS: PULSE 50; RESP 18; O2SAT 98
[2018-07-18] MEDS: Insulin NovoLOG Aspart Correctional Sugar Inj SQ SCH ×2 (08:14→12:33)
[2018-07-18] MEDS: Heparin - SQ 10,000 UNITS/ML Vial SQ SCH (08:14)
[2018-07-18] MEDS: Metoprolol Tartrate 25 MG Tablet PO SCH (08:15)
[2018-07-18] MEDS: amLODIPine 10 MG Tablet PO SCH (08:15)
--- NOTE | 2018-07-18 10:02 | P.DCO ---
Home Health Nursing Order: Medical education, Oxygen administration education and Nursing assessment with vital signs Instructions: Check lungs and lower extremities for any worsening edema Case Management Consult Case Management Consult-Home Health: Yes I have seen patient Mattie Hernandez on 07/18/18. My clinical findings support the need for the requested home health care services because: Patient has SOB and Deconditioned with increased weakness I certify that my clinical findings support that this patient is homebound because: Hx COPD - exertion dyspnea/weakness, Unsafe to leave home unassisted, Unable to use public transportation and Poor cardiac reserve
--- NOTE | 2018-07-18 10:05 | P.DS ---
DS: Providers Date of admission: 07/14/18 13:17 Primary care physician: UNKNOWN Consults: 07/14/18 11:36 Consult to Neurology Routine Consulting Provider: Barak Muñoz Reason for Consultation: New onset Seizure Notified:: Office Spoke with:: YANDY Date Notified:: 07/14/18 Time Notified:: 13:29 Ordering Provider: CECILIO Brief History from admission: Mrs. Hernandez is a 72-year-old female. She is a former smoker but official diagnoses of CHF or COPD are not present. She does have diabetes at baseline. She does take inhalers either for asthma or COPD. Today she came in complaining of acute shortness of breath. Hypoxia is present. New-onset seizure was also present which triggered her to come in. Acute kidney injury is present. Upon arrival she was on a nonrebreather which was upgraded to BiPAP based on ABG which showed respiratory acidosis. She is more comfortable on a nonrebreather. History is limited by nonrebreather use. She denies any chest pain. DS: Summary Mrs. Hernandez is a 72-year-old female. At baseline she has chronic renal disease , congestive heart failure, and COPD. She came in secondary to respiratory distress. She was found to be in acute respiratory failure with hypoxia secondary to COPD exacerbation and CHF exacerbation with fluid overload and flash pulmonary edema. BiPAP as needed during the first night and patient was monitored in the ICU. She has been gradually improving since that time. She is not yet back to baseline but she has reached a point where she is ambulatory and functional. She previously was using oxygen at home intermittently and has a supply at home that she can continue to use. She is medically stable and cleared for discharge home today. Time Spent with Patient Total time spent providing and/or coordinating discharge services: Less than 30 minutes Quality: VTE Deep Vein Thrombosis/Pulmonary Embolism Present on Admission: No Results Labs on day of discharge: Labs from last 24 hours 07/18/18 07/17/18 07/17/18 07:19 20:40 16:21 POC Glucose 304 379 355 07/17/18 11:22 POC Glucose 311 Discharge Plan Discharge Disposition Patient Disposition: Disch W/Home Health Service Discharge Condition Condition: Stable Discharge Order Discharge Orders: Discharge Order (Routine); Ordered 07/18/18 Ordered By: Jared Redding Discharge Details Anticipated Discharge Date: 07/18/18 Discharge Comment: Prescriptions transmitted to pharmacy. Physicians Team Primary Care Provider: UNKNOWN, Attending Provider: Jared Redding Other Providers: Barak Muñoz Rxs /Orders / Referrals /Forms Prescriptions: New furosemide [Lasix] 20 mg tablet 20 mg PO DAILY Qty: 30 RF: 0 Lactobacillus acidophilus Capsule 500 mmu cells PO TID Qty: 30 RF: 0 levofloxacin [Levaquin] 500 mg tablet 500 mg PO DAILY 3 Days Qty: 3 RF: 0 Continue glimepiride 1 mg Tablet 4 tab PO DAILY RF: 0 furosemide 40 MG tablet 40 mg PO BID RF: 0 amlodipine 10 MG tablet 40 mg PO DAILY RF: 0 atorvastatin 80 mg Tablet 80 mg PO DAILY RF: 0 budesonide 0.5 MG solution 0.5 mg NEB DAILY RF: 0 insulin glargine 100 unit/mL (3 mL) Insulin Pen 10 unit SUBCUT HS RF: 0 cholecalciferol (vitamin D3) [Vitamin D3] 5,000 unit Tablet 0.25 mcg PO DAILY RF: 0 liothyronine 5 mcg Tablet 5 mcg PO DAILY RF: 0 metoprolol tartrate 25 mg Tablet 25 mg PO BID RF: 0 semaglutide [Ozempic] 0.25 mg or 0.5 mg(2 mg/1.5 mL) Pen Injector 0.25 mg subcut WEEKLY RF: 0 pantoprazole 40 mg Tablet,Delayed Release (Dr/Ec) 40 mg PO DAILY RF: 0 Referrals: UNKNOWN, [Primary Care Provider] - See Instructions (PLEASE CALL YOUR INSURANCE COMPANY AT FOR A LIST OF PROVIDERS IN YOUR AREA FOR A F/U WITH A [facility] AFTER THE WEEKEND AND HOLIDAY, CALL ON THURSDAY, THANK YOU) Discharge Instructions Patient Printed Instructions: Furosemide (By mouth), Levofloxacin (By mouth), Probiotic (By mouth), Heart Failure (DC), Low-Sodium Diet (ED) Status ED Status: Admitted Patient
[2018-07-18] MEDS ORDERED: Levofloxacin 250 mg Premix Inj 250 MG/50 ML PIGGYBACK IV.SIG SCH (14:00)
== END 2018-07-18 13:11 | disposition home health service (06) | DRG 291 ==
LOC: PHEDDLT 09:26 → PHICU 13:17 → PH3 07-16 04:47
PROVIDERS: ADMIT Hospitalist; ATTEND Hospitalist
CPT/HCPCS: 36600; 70450; 71010; 71045; 76937; 80048; 80053; 81001; 82805; 82948; 82962; 83520; 83735; 83880; 84484; 85025; 85379; 85610; 87077; 87086; 87186; 87641; 90761; 90774; 90775; 90784; 93005; 93306; 94002; 94003; 94640; 94656; 94657; 94664; 94665; 95819; 96361; 96374; 96375; 97110; 97162; 97167; 97530; 99291; C8952; C9238; J1644; J1815; J1940; J1953; J1956; J2920; J2930; J7030; P9612